=== PATIENT | female | born 1950 | race Caucasian/White ===

== ENCOUNTER 2024-03-04 06:48 | Emergency (ER) | payer MEDICARE ==
[2024-03-04] MEDS: Ondansetron 4 MG Tab.DIS PO ONE (07:32)
[2024-03-04] MEDS: Acetaminophen 500 MG Tab PO ONE (07:37)
[2024-03-04 07:40] LABS: BASOPHILS ABSOLUTE AUTO 0.05 K/uL (0.00-0.10); BASOPHILS PERCENT AUTO 0.5 % (0.1-1.3); EOSINOPHILS ABSOLUTE AUTO 0.08 K/uL (0.00-0.40); EOSINOPHILS PERCENT AUTO 0.8 % (0.0-5.4); HEMATOCRIT 36.9 % (34.3-46.0); IMMATURE GRAN ABSOLUTE AUTO 0.08 K/uL (0.00-0.23); IMMATURE GRAN PERCENT AUTO 0.8 % (0.0-0.7); LYMPHOCYTES ABSOLUTE AUTO 1.76 K/uL (0.8-3.3); MEAN CORPUSCULAR HEMOGLOBIN 30.1 pg (31.6-35.5); MEAN CORPUSCULAR HGB CONC 32.5 g/dL (31.6-35.5); MEAN CORPUSCULAR VOLUME 92.5 fL (81.4-99.0); MONOCYTES ABSOLUTE AUTO 0.41 K/uL (0.20-0.90); MONOCYTES PERCENT AUTO 4.2 % (3.3-12.6); NEUTROPHILS ABSOLUTE AUTO 7.41 K/uL (1.0-7.6); NEUTROPHILS PERCENT AUTO 75.7 % (40.0-78.1); PLATELET COUNT,PLT 323 K/uL (130-375); RED BLOOD CELL COUNT 3.99 M/uL (3.77-5.24); WHITE BLOOD CELL COUNT,WBC 9.8 K/uL (3.2-11.0)
[2024-03-04] MEDS: Prochlorperazine 10 MG/2 ML SDV IM ONE (07:57)
[2024-03-04] MEDS: Ketorolac 15 MG/ML SDV IM ONE (07:57)
[2024-03-04 08:04] LABS: CORONAVIRUS COVID-19 NAA NEGATIVE (NEGATIVE); INFLUENZA A NAA NEGATIVE (NEGATIVE); INFLUENZA B NAA NEGATIVE (NEGATIVE); RESPIRATORY SYNCYTIAL VIR NAA NEGATIVE (NEGATIVE)
[2024-03-04 08:22] LABS: ANION GAP 10.5 mmol/L (5.0-14.0); CALCIUM 8.7 mg/dL (8.5-10.1); CREATININE 1.1 mg/dL (0.6-1.0); EST CRCL DRUG DOSING (CG) 31.25 mL/min; POTASSIUM,K 4.8 mmol/L (3.6-5.2)
[2024-03-04] MEDS: Sodium Chloride 0.9% 1,000 ML IV SCH (08:36)
== END 2024-03-04 10:28 | disposition home or self-care (01) ==
LOC: JP.ED 06:48
DX: A08.4 Viral intestinal infection, unspecified (principal); K92.0 Hematemesis; E78.00 Pure hypercholesterolemia, unspecified; K21.9 Gastro-esophageal reflux disease without esophagitis; E03.9 Hypothyroidism, unspecified; Z79.899 Other long term (current) drug therapy; Z79.890 Hormone replacement therapy
CPT/HCPCS: 0241U; 36415; 80048; 85025; 93005; 96360; 96361; 96372; 99284; A9270; J0780; J1885; J7030; Q0162

== ENCOUNTER 2024-03-04 18:24 | Emergency (ER) | payer MEDICARE ==
[2024-03-04 19:01] LABS: BASOPHILS ABSOLUTE AUTO 0.06 K/uL (0.00-0.10); BASOPHILS PERCENT AUTO 0.4 % (0.1-1.3); EOSINOPHILS ABSOLUTE AUTO 0.01 K/uL (0.00-0.40); EOSINOPHILS PERCENT AUTO 0.1 % (0.0-5.4); HEMOGLOBIN 9.8 g/dL (11.2-15.5); IMMATURE GRAN ABSOLUTE AUTO 0.11 K/uL (0.00-0.23); IMMATURE GRAN PERCENT AUTO 0.8 % (0.0-0.7); LYMPHOCYTES ABSOLUTE AUTO 1.81 K/uL (0.8-3.3); LYMPHOCYTES PERCENT AUTO 12.8 % (11.4-47.7); MEAN CORPUSCULAR HEMOGLOBIN 30.3 pg (31.6-35.5); MEAN CORPUSCULAR HGB CONC 32.7 g/dL (31.6-35.5); MEAN CORPUSCULAR VOLUME 92.9 fL (81.4-99.0); MONOCYTES ABSOLUTE AUTO 0.59 K/uL (0.20-0.90); MONOCYTES PERCENT AUTO 4.2 % (3.3-12.6); NEUTROPHILS ABSOLUTE AUTO 11.55 K/uL (1.0-7.6); NEUTROPHILS PERCENT AUTO 81.7 % (40.0-78.1); PLATELET COUNT,PLT 352 K/uL (130-375); RED BLOOD CELL COUNT 3.23 M/uL (3.77-5.24); WHITE BLOOD CELL COUNT,WBC 14.1 K/uL (3.2-11.0)
[2024-03-04] MEDS: Ondansetron 4 MG/2 ML SDV IVPUSH ONE (19:03)
[2024-03-04] MEDS: Sodium Chloride 0.9% 1,000 ML IV SCH (19:03)
[2024-03-04] MEDS: Pantoprazole 80 MG in Sodium Chloride 0.9% 100 ML IV ONE (19:04)
[2024-03-04 19:13] LABS: INR 1.1; PROTHROMBIN TIME 11.1 sec (9.2-10.6)
[2024-03-04 19:17] LABS: A/G RATIO 0.9 (1.2-2.2); ALANINE AMINOTRANSFERASE,ALT 14 U/L (12-78); ALKALINE PHOSPHATASE 61 U/L (46-116); ASPARTATE AMNIOTRANSFERASE,AST 10 U/L (15-37); BILIRUBIN TOTAL 0.4 mg/dL (0.2-1.0); BLOOD UREA NITROGEN,BUN 66 mg/dL (7-18); CALCIUM 8.7 mg/dL (8.5-10.1); CARBON DIOXIDE,CO2 21 mmol/L (21-32); CHLORIDE,CL 109 mmol/L (100-108); CREATININE 1.2 mg/dL (0.6-1.0); EST CRCL DRUG DOSING (CG) 28.65 mL/min; ESTIMATED GFR 47 mL/min (>60); GLUCOSE RANDOM 149 mg/dL (74-106); PROTEIN TOTAL,TP 6.2 g/dL (6.4-8.2); SODIUM,NA 143 mmol/L (140-148)
[2024-03-04] MEDS: fentaNYL 50 MCG/ML SDV IVPUSH ONE (21:51)
[2024-03-04 23:39] LABS: BASOPHILS ABSOLUTE AUTO 0.04 K/uL (0.00-0.10); BASOPHILS PERCENT AUTO 0.3 % (0.1-1.3); HEMATOCRIT 25.8 % (34.3-46.0); HEMOGLOBIN 8.3 g/dL (11.2-15.5); IMMATURE GRAN PERCENT AUTO 0.8 % (0.0-0.7); LYMPHOCYTES ABSOLUTE AUTO 1.88 K/uL (0.8-3.3); LYMPHOCYTES PERCENT AUTO 15.2 % (11.4-47.7); MEAN CORPUSCULAR HEMOGLOBIN 30.1 pg (31.6-35.5); MEAN CORPUSCULAR HGB CONC 32.2 g/dL (31.6-35.5); MEAN CORPUSCULAR VOLUME 93.5 fL (81.4-99.0); MONOCYTES ABSOLUTE AUTO 0.42 K/uL (0.20-0.90); MONOCYTES PERCENT AUTO 3.4 % (3.3-12.6); NEUTROPHILS ABSOLUTE AUTO 9.94 K/uL (1.0-7.6); NEUTROPHILS PERCENT AUTO 80.3 % (40.0-78.1); PLATELET COUNT,PLT 293 K/uL (130-375); RED BLOOD CELL COUNT 2.76 M/uL (3.77-5.24); WHITE BLOOD CELL COUNT,WBC 12.4 K/uL (3.2-11.0)
[2024-03-05 05:13] LABS: BASOPHILS ABSOLUTE AUTO 0.05 K/uL (0.00-0.10); BASOPHILS PERCENT AUTO 0.5 % (0.1-1.3); EOSINOPHILS PERCENT AUTO 0.1 % (0.0-5.4); HEMOGLOBIN 7.5 g/dL (11.2-15.5); IMMATURE GRAN ABSOLUTE AUTO 0.06 K/uL (0.00-0.23); IMMATURE GRAN PERCENT AUTO 0.5 % (0.0-0.7); LYMPHOCYTES ABSOLUTE AUTO 2.27 K/uL (0.8-3.3); LYMPHOCYTES PERCENT AUTO 20.7 % (11.4-47.7); MEAN CORPUSCULAR HEMOGLOBIN 30.1 pg (31.6-35.5); MEAN CORPUSCULAR HGB CONC 32.6 g/dL (31.6-35.5); MEAN CORPUSCULAR VOLUME 92.4 fL (81.4-99.0); MONOCYTES ABSOLUTE AUTO 0.57 K/uL (0.20-0.90); MONOCYTES PERCENT AUTO 5.2 % (3.3-12.6); NEUTROPHILS ABSOLUTE AUTO 8.01 K/uL (1.0-7.6); PLATELET COUNT,PLT 271 K/uL (130-375); RED BLOOD CELL COUNT 2.49 M/uL (3.77-5.24)
[2024-03-05 05:23] LABS: EOSINOPHILS ABSOLUTE AUTO 0.01 K/uL (0.00-0.40)
== END 2024-03-05 09:17 ==
LOC: JP.ED 18:24
DX: K92.2 Gastrointestinal hemorrhage, unspecified (principal); D62 Acute posthemorrhagic anemia; E78.00 Pure hypercholesterolemia, unspecified; K21.9 Gastro-esophageal reflux disease without esophagitis; E03.9 Hypothyroidism, unspecified; Z79.899 Other long term (current) drug therapy; Z79.890 Hormone replacement therapy; A08.4 Viral intestinal infection, unspecified
CPT/HCPCS: 0241U; 36415; 36430; 80048; 80053; 80307; 84484; 85025; 85610; 86850; 86900; 86901; 86920; 86922; 93005; 93010; 96360; 96361; 96365; 96372; 96375; 99283; 99284; 99285; A9270; J0780; J1885; J2405; J2470; J3010; J3490; J7030; P9016; Q0162